=== PATIENT | male | born 1995 | race Caucasian/White ===

== ENCOUNTER 2019-02-21 06:22 | Emergency (ER) | payer OTHER ==
[~2019-02-21] VITALS: Ht 177.8 cm; Wt 84.1 kg
[2019-02-21] MEDS ORDERED: TRAZ-252 PO (06:29)
[2019-02-21] MEDS ORDERED: NAPR250T4 PO (06:29)
[2019-02-21] MEDS ORDERED: NAPROXEN 250 MG TAB PO ONE (07:00)
--- NOTE | 2019-02-21 07:58 | REP ---
Clinical: Lower back pain . Technique: AP, lateral, bilateral oblique, and coned-down views. Findings: Alignment and lordosis is maintained. The vertebral bodies including transverse process and spinous processes are intact and normal. There is no evidence for acute fracture / compression injury or subluxation. No evidence for spondylolysis or spondylolisthesis. No significant degenerative change is noted. Impression: Normal lumbosacral spine radiograph series. Electronically Signed by Barron Stevenson MD 02/21/2019 07:49 A
--- NOTE | 2019-02-21 07:58 | REP ---
Clinical: Pain. Technique: Neutral and frog lateral views of the right hip. Findings: No acute fracture dislocation. No arthritic changes. Surrounding soft tissues are unremarkable. Impression: Normal right hip radiographs. Electronically Signed by Barron Stevenson MD 02/21/2019 07:49 A
--- NOTE | 2019-02-21 07:59 | REP ---
Clinical: Right knee pain Technique: AP, lateral, bilateral oblique and sunrise views right knee . Findings: The osseous structures and joint spaces are intact and normal. There is no evidence for acute fracture or dislocation. No joint effusion is appreciated. Surrounding soft tissues are unremarkable. No subcutaneous emphysema or radiodense foreign body. Impression: Normal examination. No acute fracture or dislocation. Electronically Signed by Barron Stevenson MD 02/21/2019 07:50 A
[2019-02-21 08:43] VITALS: BP 132/77
== END 2019-02-21 09:04 | disposition home or self-care (01) ==
LOC: M ED 06:22
DX: M25.561 Pain in right knee (principal); M54.5 Low back pain; Z88.0 Allergy status to penicillin; Z79.899 Other long term (current) drug therapy